=== PATIENT | male | born 1960 | race Caucasian/White ===

== ENCOUNTER 2023-05-06 13:11 | Emergency (ER) | payer OTHER, SELFPAY ==
--- OUTSIDE RECORDS SUMMARY | 2023-05-06 13:14 | XMS REPORT | Continuity of Care Document ---
:[address] [facility] t Address [address] [place] [address] [place] [address] Care Team Providers Name Role Phone CHRISTIAN BISHOP Attending Clinician Unavailable Josie Attending Clinician Unavailable Grady Salgado Attending Clinician Unavailable EVELYN Attending Clinician Unavailable DANE Attending Clinician Unavailable Josie Admitting Clinician Unavailable EVELYN Admitting Clinician Unavailable DANE Admitting Clinician Unavailable Payers Payer Name Policy Type Policy Number Effective Date Expiration Date [facility] [id number] REGION 4 Problems Condition Condition Condition Status Onset Resolution Last Treating Co mments Source Name Details Category Date Date Treatment Clinician Date Essential Essential Problem Active [facility] hypertensi Hypertensi 2-24 da on on 00:00: Medical 00 Group Foot pain Foot Pain Problem Active [facility] Allergies, Adverse Reactions, Alerts This patient has no known allergies or adverse reactions. Social History Smoking Status Start Date Stop Date Source Former Smoker [facility] Medications Ordered Filled Start Stop Current Ordering Indication Dosage Frequency Signature Comments Components Source Medication Medication Date Date Medication? Clinician (SIG) Name Name acetaminoph acetaminoph No acetaminop [facility] en 500 mg en 500 mg hen 500 mg da tablet tablet tablet Medical Group amlodipine amlodipine No amlodipine [facility] 10 mg 10 mg 10 mg da tablet Take tablet Take tablet Medical 1 tablet 1 tablet Take 1 Group every day every day tablet by oral by oral every day route. route. by oral route. Fish Oil Fish Oil No 1capsul Q1D Fish Oil [facility] 1,000 mg 1,000 mg e(s) 1,000 mg da (120 mg-180 (120 mg-180 (120 M edical mg) capsule mg) capsule mg-180 mg) Group Take 1 Take 1 capsule capsule capsule Take 1 every day every day capsule by oral by oral every day route. route. by oral route. Golytely Golytely No Golytely [facility] [phone] da gram-22.74 gram-22.74 gram-22.74 Medical gram-6.74 gram-6.74 gram-6.74 Group gram-5.86 gram-5.86 gram-5.86 gram oral gram oral gram oral solution solution solution MIX AND MIX AND MIX AND TAKE TAKE TAKE DIRECTED DIRECTED DIRECTED hydrochloro hydrochloro No hydrochlor [facility] thiazide thiazide othiazide da 12.5 mg 12.5 mg 12.5 mg Medica l capsule capsule capsule Group losartan losartan No losartan [place] 100 mg 100 mg 100 mg da tablet tablet tablet Medical Group meloxicam meloxicam No 1 Q1D meloxicam [facility] 15 mg 15 mg 15 mg da tablet Take tablet Take tablet Medical 1 tablet 1 tablet Take 1 Group every day every day tablet by oral by oral every day route. route. by oral route. methocarbam methocarbam No 2 BID methocarba [place] ol 500 mg ol 500 mg mol 500 mg da tablet Take tablet Take tablet Medical 2 tablets 2 tablets Take 2 Hoa up twice a day twice a day tablets by oral by oral twice a route. route. day by oral route. acetaminoph acetaminoph No acetaminop [place] en 500 mg en 500 mg hen 500 mg da tablet tablet tablet Medical Group amlodipine amlodipine No amlodipine [facility] 10 mg 10 mg 10 mg da tablet Take tablet Take tablet Medical 1 tablet 1 tablet Take 1 Group every day every day tablet by oral by oral every day route. route. by oral route. Fish Oil Fish Oil No 1capsul Q1D Fish Oil [facility] 1,000 mg 1,000 mg e(s) 1,000 mg da (120 mg-180 (120 mg-180 (120 M edical mg) capsule mg) capsule mg-180 mg) Group Take 1 Take 1 capsule capsule capsule Take 1 every day every day capsule by oral by oral every day route. route. by oral route. hydrochloro hydrochloro No hydrochlor [facility] thiazide thiazide othiazide da 12.5 mg 12.5 mg 12.5 mg Medica l capsule capsule capsule Group losartan losartan No losartan [facility] [place] 100 mg 100 mg 100 mg da tablet tablet tablet Medical Group meloxicam meloxicam No 1 Q1D meloxicam [facility] 15 mg 15 mg 15 mg da tablet Take tablet Take tablet Medical 1 tablet 1 tablet Take 1 Group every day every day tablet by oral by oral every day route. route. by oral route. methocarbam methocarbam No 2 BID methocarba [place] ol 500 mg ol 500 mg mol 500 mg da tablet Take tablet Take tablet Medical 2 tablets 2 tablets Take 2 Hoa up twice a day twice a day tablets by oral by oral twice a route. route. day by oral route. acetaminoph acetaminoph No acetaminop [place] en 500 mg en 500 mg hen 500 mg da tablet tablet tablet Medical Group amlodipine amlodipine No amlodipine [place] 10 mg 10 mg 10 mg da tablet Take tablet Take tablet Medical 1 tablet 1 tablet Take 1 Group every day every day tablet by oral by oral every day route. route. by oral route. Fish Oil Fish Oil No 1capsul Q1D Fish Oil [facility] 1,000 mg 1,000 mg e(s) 1,000 mg da (120 mg-180 (120 mg-180 (120 M edical mg) capsule mg) capsule mg-180 mg) Group Take 1 Take 1 capsule capsule capsule Take 1 every day every day capsule by oral by oral every day route. route. by oral route. hydrochloro hydrochloro No hydrochlor [facility] thiazide thiazide othiazide da 12.5 mg 12.5 mg 12.5 mg Medica l capsule capsule capsule Group losartan losartan No losartan [facility] [place] 100 mg 100 mg 100 mg da tablet tablet tablet Medical Group meloxicam meloxicam No 1 Q1D meloxicam [facility] 15 mg 15 mg 15 mg da tablet Take tablet Take tablet Medical 1 tablet 1 tablet Take 1 Group every day every day tablet by oral by oral every day route. route. by oral route. methocarbam methocarbam No 2 BID methocarba [place] ol 500 mg ol 500 mg mol 500 mg da tablet Take tablet Take tablet Medical 2 tablets 2 tablets Take 2 Hoa up twice a day twice a day tablets by oral by oral twice a route. route. day by oral route. Vital Signs Vital Name Observation Time Observation Value Comments Source BP Diastolic 2022-11-14 00:00:00 88 mm[Hg] [facility] Height 2022-11-14 00:00:00 76 [in_i] [facility] BMI (Body Mass 2022-11-14 00:00:00 20.7 kg/m2 [facility]) Group BP Systolic 2022-11-14 00:00:00 151 mm[Hg] [facility] Body Weight 2022-11-14 00:00:00 169.7 [lb_av] [facility] BP Diastolic 2022-10-06 00:00:00 89 mm[Hg] [facility] Height 2022-10-06 00:00:00 76 [in_i] [facility] BMI (Body Mass 2022-10-06 00:00:00 19.7 kg/m2 [facility] Index) Group BP Systolic 2022-10-06 00:00:00 148 mm[Hg] [facility] Body Weight 2022-10-06 00:00:00 162 [lb_av] [facility] BP Diastolic 2022-09-12 00:00:00 106 mm[Hg] [facility] Height 2022-09-12 00:00:00 76 [in_i] [facility] BMI (Body Mass 2022-09-12 00:00:00 19.7 kg/m2 [facility] Medical Index) Group BP Systolic 2022-09-12 00:00:00 144 mm[Hg] [facility] Body Weight 2022-09-12 00:00:00 162 [lb_av] [facility] Procedures This patient has no known procedures. Plan of Care Planned Activity Planned Date Details Comments Source Instructions [facility] Encounters Start End Encounter Admission Attending Care Care Encounter Source Date/Time Date/Time Type Type Clinicians Facility Department ID 2022-10-21 Inpatient EL IHDCHRISTIAN Villar [facility] [id number] [place] 08:30:00 -[id number] [facility] 2022-10-08 Inpatient EL IhdeChristian [facility] [id number] [place] 07:30:00 -[id number] [facility] 2022-10-03 Inpatient EL IhdeChristian [facility] [id number] [place] 08:45:00 -[id number] [facility] 2022-11-14 2022-11-14 Outpatient Young_J [facility] MMG [id number] [place] 00:00:00 00:00:00 0428 [facility] 2022-11-14 2022-11-14 Outpatient Young_J MM[facility] MMG [id number] [place] 00:00:00 00:00:00 0503 [facility] 2022-11-14 2022-11-14 Grady KRAFT [place] - [id number] M [facility] 00:00:00 00:00:00 Damian, DO: [facility] [address] [place] [address] , Ph. [phone] 2022-11-03 2022-11-03 Outpatient Young_J MM[facility] MMG [id number] [place] 00:00:00 00:00:00 0417 Medical Group 2022-10-22 2022-10-22 Outpatient RUPALI Salgado [facility] [id number] [place] 08:20:00 08:20:00 Grady [id number] [facility] 2022-10-13 2022-10-13 Outpatient Young_J MMG MMG [id number] [place] 00:00:00 00:00:00 0410 Medical Group 2022-10-06 2022-10-06 Grady KRAFT [place] - [id number] [facility] 00:00:00 00:00:00 Damian, DO: d [address], [place] [address] , Ph. [phone] 2022-10-01 2022-10-01 Outpatient Young_J MMG MMG [id number] [place] 00:00:00 00:00:00 0320 [facility] 2022-10-01 2022-10-01 Outpatient Young_J MMG MMG [id number] [place] 00:00:00 00:00:00 0321 [facility] 2022-10-01 2022-10-01 Outpatient Young_J MMG MMG [id number] [place] 00:00:00 00:00:00 0325 [facility] 2022-10-01 2022-10-01 Outpatient Young_J MMG MMG [id number] [place] 00:00:00 00:00:00 0327 [facility] 2022-09-25 2022-09-25 Outpatient Young_J MMG MMG [id number] [place] 00:00:00 00:00:00 0309 [facility] 2022-09-12 2022-09-12 Outpatient IHDE_G MMG MMG [id number] [place] 00:00:00 00:00:00 0301 [facility] 2022-09-12 2022-09-12 Outpatient IHDE_G MMG MMG [id number] [place] 00:00:00 00:00:00 0224 [facility] 2022-09-12 2022-09-12 Christian MMG [place] - [id number] M [facility] 00:00:00 00:00:00 Chino Russell MD: Medical [facility] [address], General [address], [place] [address] , Ph. [phone] 2022-09-10 2022-09-10 Outpatient IHDE_G MMG MMG [id number] [place] 00:00:00 00:00:00 0222 [facility] 2022-07-29 2022-07-29 Outpatient FERGUSON_JO MEHOP MEHOP [id number] [place] 00:00:00 00:00:00 HN 0110 [facility] 2022-07-29 2022-07-29 Outpatient FERGUSON_JO MEHOP MEHOP [id number] [place] 00:00:00 00:00:00 HN 0710 [facility] 2022-03-31 2022-03-31 Outpatient FERGUSON_JO MEHOP MEHOP [id number] [place] 00:00:00 00:00:00 HN 0912 [facility] 2022-03-13 2022-03-13 Outpatient FERGUSON_JO MEHOP MEHOP [id number] [place] 00:00:00 00:00:00 HN 0825 [facility] 2022-03-12 2022-03-12 Outpatient FERGUSON_JO MEHOP MEHOP [id number] [place] 00:00:00 00:00:00 HN 0824 [facility] 2022-02-18 2022-02-18 Outpatient FERGUSON_JO MEHOP MEHOP [id number] [place] 00:00:00 00:00:00 HN 0802 [facility] 2022-01-22 2022-01-22 Outpatient FERGUSON_JO MEHOP MEHOP [id number] [place] 12:02:00 12:02:00 HN 0706 [facility] 2021-07-09 2021-07-09 Outpatient FERGUSON_JO MEHOP MEHOP [id number] [place] 02:48:00 02:48:00 HN 1221 [facility] 2021-06-04 2021-06-04 Outpatient FERGUSON_JO MEHOP MEHOP [id number] [place] 09:59:00 09:59:00 HN 1116 [facility] 2021-05-28 2021-05-28 Outpatient FERGUSON_JO MEHOP MEHOP [id number] [place] 09:05:00 09:05:00 HN 1109 [facility] 2021-04-18 2021-04-18 Outpatient FERGUSON_JO MEHOP MEHOP [id number] [place] 08:59:00 08:59:00 HN 0930 [facility] 2021-03-20 2021-03-20 Outpatient FERGUSON_JO MEHOP MEHOP [id number] [place] 07:26:00 07:26:00 HN 0901 [facility] 2021-03-13 2021-03-13 Outpatient FERGUSON_JO MEHOP MEHOP [id number] [place] 02:40:00 02:40:00 HN 0825 [facility] 2021-02-13 2021-02-13 Outpatient FERGUSON_JO MEHOP MEHOP [id number] [place] 08:57:00 08:57:00 HN 0728 [facility] 2020-09-11 2020-09-11 Outpatient FERGUSON_JO MEHOP MEHOP [id number] [place] 09:01:00 09:01:00 HN 0223 [facility] 2020-07-31 2020-07-31 Outpatient FERGUSON_JO MEHOP MEHOP [id number] [place] 02:32:00 02:32:00 HN 0112 [facility] 2020-07-30 2020-07-30 Outpatient FERGUSON_JO MEHOP MEHOP [id number] [place] 03:35:00 03:35:00 HN 0111 [facility] 2020 2020 Outpatient FERGUSON_JO MEHOP MEHOP 838 [place] 11:13:00 11:13:00 HN 1218 [facility] 2020-06-13 2020-06-13 Outpatient FERGUSON_JO MEHOP MEHOP [id number] [place] 05:46:00 05:46:00 HN 1125 [facility] 2020-06-04 2020-06-04 Outpatient FERGUSON_JO MEHOP MEHOP 838 [place] 02:55:00 02:55:00 HN 1116 [facility] 2020-02-28 2020-02-28 Outpatient FERGUSON_JO MEHOP MEHOP [id number] [place] 11:47:00 11:47:00 HN 0811 [facility] 2020-02-21 2020-02-21 Outpatient FERGUSON_JO MEHOP MEHOP [id number] [place] 09:04:00 09:04:00 HN 0804 [facility] 2019-09-06 2019-09-06 Outpatient FERGUSON_JO MEHOP MEHOP 838 [place] 02:57:00 02:57:00 HN 0218 [facility] 2019-08-25 2019-08-25 Outpatient YVONNE BROWN 838 [place] 09:28:00 09:28:00 BILL [facility]206 [facility] This patient has no known results.
--- NOTE | 2023-05-06 14:04 | RAD REPORT ---
EXAM DESCRIPTION: [place] Single View05/06/2023 1:36 pm CLINICAL HISTORY: CHEST PAIN COMPARISON: No comparisons TECHNIQUE: PA view of the chest. FINDINGS: Small left basilar airspace opacity. No pneumothorax or effusion. The cardiomediastinal c ontours are unremarkable. IMPRESSION: Left basilar airspace opacity may relate to atelectasis/ scarring or early pneumonia
[2023-05-06 14:11] LABS: Absolute Lymphocytes (CBC) 0.9 K/uL (0.7-4.9); Hematocrit 42.6 % (39.6-49.0); MCV 86.5 fL (80-100); MPV 7.4 fL (7.6-11.3); Platelets 202 thou/uL (152-406); RBC Red Blood Cell Count 4.92 M/uL (4.33-5.43)
[2023-05-06 14:14] LABS: Protime INR 0.98
[2023-05-06 14:34] LABS: Albumin 4.4 g/dL (3.4-5.0); Bilirubin Direct 0.2 mg/dL (0-0.2); Bilirubin Indirect, Calculated 0.6 mg/dL (0.2-0.8); Bilirubin Total 0.8 mg/dL (0.2-1.0); Magnesium 2.1 mg/dL (1.6-2.4); Potassium 3.6 mEq/L (3.5-5.1); Protein, Total 7.8 g/dL (6.4-8.2); Troponin High Sensitivity 7.1 pg/mL (<58.9)
--- NOTE | 2023-05-06 14:57 | EDPHYS ---
Physician Documentation [facility] Name: Dakota Mcmahan Age: 62 yrs Sex: Male : 1960 Arrival Date: 05/06/2023 Time: 13:11 Bed 11 Private MD: ED Physician Kristal Castillo HPI: 05/06 14:53 This 62 yrs old Male presents to ER via Ambulatory with complaints of Chest Pain, Blood sp3 Pressure Problem. 14:53 62-year-old male with history of hypertension that seen at the [facility], multiple sp3 episodes of pleuritic chest pain diagnosed with pleurisy in the past now presents to the ED with left-sided sharp pleuritic type chest pain since Thursday 5 days ago. Patient states that its not been going away so he decided to come in and get evaluated. He denies any substernal chest pain, dull pain, back pain, syncope, near syncope, headache, neck pain, jaw pain, left arm pain, epigastric pain, abdominal pain, vomiting, diarrhea, any other signs or symptoms on ROS at this time. No prior cardiac history noted.. Historical: - Allergies: 13:20 No Known Allergies; mb9 - Home Meds: 13:20 amlodipine 10 mg tablet [Active]; hydrochlorothiazide 12.5 mg Oral tablet [Active]; mb9 losartan 100 mg oral tablet [Active]; meloxicam 15 mg oral tablet [Active]; methocarbamol 500 mg Oral tablet [Active]; - PMHx: 13:20 Hypertensive disorder; mb9 - PSHx: 13:20 None; mb9 - Immunization history:: Adult Immunizations up to date. - Social history:: Smoking status: Patient denies any tobacco usage or history of. ROS: 14:54 Constitutional: Negative for fever, chills, and weight loss, Eyes: Negative for injury, sp3 pain, redness, and discharge, ENT: Negative for injury, pain, and discharge, Neck: Negative for injury, pain, and swelling, Respiratory: Negative for shortness of breath, cough, wheezing, and pleuritic chest pain, Abdomen/GI: Negative for abdominal pain, nausea, vomiting, diarrhea, and constipation, Back: Negative for injury and pain, MS/Extremity: Negative for injury and deformity, Skin: Negative for injury, rash, and discoloration, Neuro: Negative for headache, weakness, numbness, tingling, and seizure, Psych: Negative for depression, anxiety, suicide ideation, homicidal ideation, and hallucinations, Allergy/Immunology: Negative for hives, rash, and allergies, Endocrine: Negative for neck swelling, polydipsia, polyuria, polyphagia, and marked weight changes, Hematologic/Lymphatic: Negative for swollen nodes, abnormal bleeding, and unusual bruising, 14:54 All other systems are negative, Exam: 14:54 Constitutional: This is a well developed, well nourished patient who is awake, alert, sp3 and in no acute distress. Head/Face: Normocephalic, atraumatic. Eyes: Pupils equal round and reactive to light, extra-ocular motions intact. Lids and lashes normal. Conjunctiva and sclera are non-icteric and not injected. Cornea within normal limits. Periorbital areas with no swelling, redness, or edema. Neck: Trachea midline, no thyromegaly or masses palpated, and no cervical lymphadenopathy. Supple, full range of motion without nuchal rigidity, or vertebral point tenderness. No Meningismus. Chest/axilla: Normal chest wall appearance and motion. Nontender with no deformity. No lesions are appreciated. Cardiovascular: Regular rate and rhythm with a normal S1 and S2. No gallops, murmurs, or rubs. Normal PMI, no JVD. No pulse deficits. Respiratory: Lungs have equal breath sounds bilaterally, clear to auscultation and percussion. No rales, rhonchi or wheezes noted. No increased work of breathing, no retractions or nasal flaring. Abdomen/GI: Soft, non-tender, with normal bowel sounds. No distension or tympany. No guarding or rebound. No evidence of tenderness throughout. Back: No spinal tenderness. No costovertebral tenderness. Full range of motion. Skin: Warm, dry with normal turgor. Normal color with no rashes, no lesions, and no evidence of cellulitis. MS/ Extremity: Pulses equal, no cyanosis. Neurovascular intact. Full, normal range of motion. Neuro: Awake and alert, GCS 15, oriented to person, place, time, and situation. Cranial nerves II-XII grossly intact. Motor strength 5/5 in all extremities. Sensory grossly intact. Cerebellar exam normal. Normal gait. Psych: Awake, alert, with orientation to person, place and time. Behavior, mood, and affect are within normal limits. 14:54 ECG was reviewed by the Attending Physician. EKG demonstrates normal sinus rhythm at 91 bpm with normal intervals, normal QRS, normal axis, nonspecific diffuse ST/T changes without evidence of acute ischemia. Vital Signs: 13:18 BP 150 / 81; Pulse 87; Resp 18; Temp 98.4; Pulse Ox 100% on R/A; Weight 79.38 kg; mb9 Height 6 ft. 4 in. ; 13:18 Body Mass Index 21.30 (79.38 kg, 193.04 cm) mb9 MDM: 13:25 Patient medically screened. sp3 14:55 Data reviewed: vital signs, nurses notes, lab test result(s), EKG, radiologic studies. sp3 ED course: 62-year-old male with likely pleuritic type chest pain. I am not highly suspicious for acute coronary syndrome, dissection, PE or any other critical illness. Symptoms have been going on for 5 days and troponin high-sensitivity is negative. Remainder of work-up is also negative including chest x-ray and laboratory values. We will administer ketorolac IV and discharge patient on diclofenac [facility]. Patient is in no acute distress, laughing and communicating with staff without any difficulty. We will safely discharge him home at this time.. 05/06 13:25 Order name: Basic Metabolic Panel; Complete Time: 14:36 3 05/06 13:25 Order name: CBC with Diff; Complete Time: 14:36 3 05/06 13:25 Order name: LFT's; Complete Time: 14:36 3 05/06 13:25 Order name: Magnesium; Complete Time: 14:36 3 05/06 13:25 Order name: NT PRO-BNP; Complete Time: 14:36 3 05/06 13:25 Order name: PT-INR; Complete Time: 14:36 3 05/06 13:25 Order name: Troponin HS; Complete Time: 14:36 3 05/06 13:25 Order name: XRAY Chest (1 view); Complete Time: 14:36 3 05/06 13:25 Order name: EKG; Complete Time: 13:26 3 05/06 13:25 Order name: Cardiac monitoring; Complete Time: 14:32 sp3 05/06 13:25 Order name: EKG - Nurse/Tech; Complete Time: 13:26 sp3 05/06 13:25 Order name: IV Saline Lock; Complete Time: 14:06 sp3 05/06 13:25 Order name: Labs collected and sent; Complete Time: 14:06 sp3 05/06 13:25 Order name: O2 Per Protocol; Complete Time: 14:32 sp3 05/06 13:25 Order name: O2 Sat Monitoring; Complete Time: 14:32 sp3 Administered Medications: No medications were administered Disposition Summary: 05/06/23 14:56 Discharge Ordered Notes: Location: Home sp3 Condition: Stable sp3 Diagnosis - Pleurisy sp3 Followup: sp3 - With: Private Physician - When: Upon discharge from the Emergency Department - Reason: Continuance of care Discharge Instructions: - Discharge Summary Sheet sp3 - Pleurisy sp3 Forms: - Medication Reconciliation Form sp3 - Thank You Letter sp3 - Antibiotic Education sp3 - Prescription Opioid Use sp3 - Patient Portal Instructions sp3 - Leadership Thank You Letter sp3 Prescriptions: - Diclofenac Sodium 75 mg Oral Tablet Sustained Release - take 1 tablet ORAL route 2 times per day; 30 tablet; Refills: 0, Product sp3 Selection Permitted Signatures: Dispatcher [employer] EDKristal Curiel MD MD sp3 Yesenia Rodriguez RN RN mb9
--- NOTE | 2023-05-06 14:57 | ER ---
Nurse's Notes [facility] Name: Dakota Mcmahan Age: 62 yrs Sex: Male : 1960 Arrival Date: 05/06/2023 Time: 13:11 Bed 11 Private MD: Diagnosis: Pleurisy Presentation: 05/06 13:18 Chief complaint: Patient states: "Thursday, I started having pleurisy pain on my left mb9 side. I've been having high BP of 161/91. I'm not sure if my BP medication is working or not.". Coronavirus screen: Vaccine status: Patient reports receiving the 2nd dose of the covid vaccine. Ebola Screen: No symptoms or risks identified at this time. Initial Sepsis Screen: Does the patient meet any 2 criteria? No. Patient's initial sepsis screen is negative. Does the patient have a suspected source of infection? No. Patient's initial sepsis screen is negative. Risk Assessment: Do you want to hurt yourself or someone else? Patient reports no desire to harm self or others. Onset of symptoms was 2022. 13:18 Method Of Arrival: Ambulatory mb9 13:18 Acuity: ADITI 3 mb9 Triage Assessment: 13:22 General: Appears in no apparent distress. Behavior is cooperative, anxious. Pain: mb9 Complains of pain in chest Quality of pain is described as pressure, Pain began 2-3 days ago. Is intermittent, Alleviated by inspiration. Neuro: Munoz Agitation-Sedation Scale (RASS): 0 - Alert and Calm Level of Consciousness is awake, alert, obeys commands, Oriented to person, place, time, situation, Appropriate for age. Cardiovascular: Reports chest pain. Cardiovascular: Patient's skin is warm and dry. Respiratory: Reports cough that is. Respiratory: Airway is patent Respiratory effort is even, unlabored, Respiratory pattern is regular, symmetrical. GI: Patient currently denies nausea, pain. : No signs and/or symptoms were reported regarding the genitourinary system. Derm: Skin is pink, warm \\T\\ dry. Musculoskeletal: Range of motion: intact in all extremities. Historical: - Allergies: 13:20 No Known Allergies; mb9 - Home Meds: 13:20 amlodipine 10 mg tablet [Active]; hydrochlorothiazide 12.5 mg Oral tablet [Active]; mb9 losartan 100 mg oral tablet [Active]; meloxicam 15 mg oral tablet [Active]; methocarbamol 500 mg Oral tablet [Active]; - PMHx: 13:20 Hypertensive disorder; mb9 - PSHx: 13:20 None; mb9 - Immunization history:: Adult Immunizations up to date. - Social history:: Smoking status: Patient denies any tobacco usage or history of. Screenin:32 [facility] ED Fall Risk Assessment (Adult) History of falling in the last 3 months, ap3 including since admission No falls in past 3 months (0 pts). Abuse screen: Denies threats or abuse. Nutritional screening: No deficits noted. Tuberculosis screening: No symptoms or risk factors identified. Assessment: 13:23 Reassessment: EKG done in triage. mb9 14:32 General: Appears in no apparent distress. Behavior is calm, cooperative, appropriate ap3 for age. Pain: Denies pain. Pain does not radiate. Neuro: Level of Consciousness is awake, alert, obeys commands, Oriented to person, place, time, situation. Cardiovascular: Patient's skin is warm and dry. Respiratory: Airway is patent Respiratory effort is even, unlabored, Respiratory pattern is regular, symmetrical. Vital Signs: 13:18 BP 150 / 81; Pulse 87; Resp 18; Temp 98.4; Pulse Ox 100% on R/A; Weight 79.38 kg; mb9 Height 6 ft. 4 in. ; 13:18 Body Mass Index 21.30 (79.38 kg, 193.04 cm) mb9 ED Course: 13:16 Patient arrived in ED. mg5 13:20 Triage completed. mb9 13:22 Arm band placed on. mb9 13:24 Kristal Castillo MD is Attending Physician. sp3 13:29 EKG done, by ED staff, reviewed by Kristal Castillo MD. ap3 13:37 XRAY Chest (1 view) In Process Unspecified. EDMS 14:06 Inserted saline lock: 20 gauge in left antecubital area, using aseptic technique. iw 14:26 Ana Shukla, RN is Primary Nurse. ap3 14:33 rate and cost analyst on. Pulse ox on. NIBP on. ap3 14:33 Patient has correct armband on for positive identification. Bed in low position. Call ap3 light in reach. Side rails up X 1. 14:33 Patient maintains SpO2 saturation greater than 95% on room air. ap3 15:09 No provider procedures requiring assistance completed. IV discontinued, intact, ap3 bleeding controlled, No redness/swelling at site. Pressure dressing applied. 15:10 Provided Education on: discharge instructions. ap3 Administered Medications: No medications were administered Medication: 14:33 VIS not applicable for this client. ap3 Outcome: 14:56 Discharge ordered by . sp3 15:10 Discharged to home ambulatory, ap3 15:10 Condition: good 15:10 Discharge instructions given to patient, Instructed on discharge instructions, follow up and referral plans. medication usage, Demonstrated understanding of instructions, follow-up care, medications, Prescriptions given X 1, 15:10 Patient left the ED. ap3 Signatures: Dispatcher [employer] EDMS Sophie Junior RN RN iw Prokisch, Amanda, RN RN ap3 Kristal Castillo MD MD sp3 Yesenia Rodriguez RN RN mb9 Katina Manrique mg5 Corrections: (The following items were deleted from the chart) 13:22 13:18 Pulse 87bpm; Resp 18bpm; Pulse Ox 100% RA; Temp 98.4F; 79.38 kg; Height 6 ft. 4 mb9 in.; BMI: 21.3; mb9
[2023-05-06 17:03] VITALS: BP 150/81; TEMP 98.4; O2SAT 100
--- NOTE | 2023-05-07 13:39 | EKG ---
Test Date: 2023-05-06 Test Time: 13:23:17 Training Development Manager: ALP MEASUREMENT RESULTS: Intervals: Rate: 91 CT: 156 QRSD: 76 QT: 356 QTc: 437 Romulus: P: 86 CT: 156 QRS: 18 T: 76 INTERPRETIVE STATEMENTS: Normal sinus rhythm Possible Left atrial enlargement Borderline ECG Compared to ECG 10/11/2002 09:36:00 Left ventricular hypertrophy no longer present Electronically Signed On 05-07-23 13:36:58 CDT by Abhijit Sorto
== END 2023-05-06 15:10 | disposition home or self-care (01) ==
LOC: ER 13:11
DX: R09.1 Pleurisy (principal); I10 Essential (primary) hypertension
CPT/HCPCS: 36415; 71045; 80048; 80076; 83735; 83880; 84484; 85025; 85610; 93005

== ENCOUNTER 2024-12-07 09:50 | Emergency (ER) | payer OTHER ==
--- OUTSIDE RECORDS SUMMARY | 2024-12-07 09:54 | XMS REPORT | Continuity of Care Document ---
Author Name Unknown Address [address] [facility] [address] [place] [address] [facility] [place] Address [address] [facility] [address] [place] [address] Care Team Providers Care Safety Aide Name Role Phone OBI-MD VEENA TELLO Primary Care Physician CONCEPCION SOLARES Attending Clinician Unavailable KATI CASTANEDA Attending Clinician Unavailab CHRISTIAN Oconnell Attending Clinician Unavaila ble GÓMEZ SHERMAN, GÓMEZ Attending Clinician Unava ilable BLAYNE, OLADIPO Attending Clinician Unavailable DANE Attending Clinician Unavailable Josie Attending Clinician Unavailable Grady Salgado Attending Clinician Unavailable IHDE_G Attending Clinician Unavailable GÓMEZ SHERMAN, GÓMEZ Admitting Clinician Unava ilable BLAYNE, OLADIPO Admitting Clinician Unavailable DANE Admitting Clinician Unavailable Josie Admitting Clinician Unavailable IHDE_G Admitting Clinician Unavailable Payers Payer Name Policy Type Policy Number Effective Date Expirati on Date Source FORMERLY [facility] [id number] FORMERLY [facility] 4 [id number] Problems Condition Name Condition Details Condition Category Status Onset Date Resolution Date Last Treatment Date Treating Clinician Comments Source Essential hypertensi on Essential Hypertensi on Problem Active 09-12 00:00: 00 [employer] Avulsion fracture of navicular bone of foot Problem [facility] Hypertensi on Problem [facility] Laceration of right extensor hallucis longus tendon Problem [facility] Open fracture Problem [facility] Injury of right foot Problem [facility] Foot pain Foot Pain Problem Active [facility] Social History Social Habit Start Date Stop Date Quantity Comments Source History of tobacco use [facility] Smoking Status Start Date Stop Date Source Ex-smoker (finding) 2024-03-30 22:21:00 2024-03-30 22: 21:00 [facility] Medications Ordered Medication Name Filled Medication Name Start Date Stop Date Current Medication? Ordering Clinician Indication Dosage Frequency Signature (SIG) Comments Components Source Ampicillin Sod/Sulbact am Sod (Unasyn 1.5 Gm) 1.5 Gm INJ Ampicillin Sod/Sulbact am Sod (Unasyn 1.5 Gm) 1.5 Gm INJ 04-05 15:51: [address] [facility] Amlodipine Besylate (Norvasc *) 10 Mg TAB Amlodipine Besylate (Norvasc *) 10 Mg TAB 03-30 22:19: [address] [facility] Hydrochloro thiazide Hydrochloro thiazide 03-30 22:19: [address] [facility] Losartan Potassium (Cozaar *) 100 Mg TAB Losartan Potassium (Cozaar *) 100 Mg TAB 03-30 22:19: [address] [facility] Acetaminoph en (Tylenol *) 500 Mg TAB Acetaminoph en (Tylenol *) 500 Mg TAB 4-04 10:47: [address] [facility] Ascorbic Acid (Vitamin C 500 Mg *) 500 Mg TAB Ascorbic Acid (Vitamin C 500 Mg *) 500 Mg TAB 10-21 10:47: [address] [facility] Cholecalcif tamar (Vitamin D High Potency 1,000 Unt *) 1,000 Unit CAP Cholecalcif tamar (Vitamin D High Potency 1,000 Unt *) 1,000 Unit CAP 10-21 10:47: [address] [facility] Garlic (Garlic 500 Mg) 500 Mg TAB Garlic (Garlic 500 Mg) 500 Mg TAB 10-21 10:47: [address] [facility] Methocarbam ol (Methocarba mol 500 Mg) 500 Mg TAB Methocarbam ol (Methocarba mol 500 Mg) 500 Mg TAB 10-21 10:47: [address] [facility] Multiple Vitamin * (Multivitam ins *) TAB Multiple Vitamin * (Multivitam ins *) TAB 10-21 10:47: [address] [facility] [place]-3 Fatty Acids (Fish Oil 1,000 Mg) 1,[address] [place]-3 Fatty Acids (Fish Oil 1,000 Mg) 1,[address] 10-21 10:47: [address] [facility] Fish Oil 1,000 mg (120 mg-180 mg) capsule Take 1 capsule every day by oral route. Fish Oil 1,000 mg (120 mg-180 mg) capsule Take 1 capsule every day by oral route. No 1capsul e(s) Q1D Fish Oil 1,000 mg (120 mg-180 mg) capsule Take 1 capsule every day by oral route. [employer] meloxicam 15 mg tablet Take 1 tablet every day by oral route. meloxicam 15 mg tablet Take 1 tablet every day by oral route. No 1 Q1D meloxicam 15 mg tablet Take 1 tablet every day by oral route. [employer] acetaminoph en 500 mg tablet acetaminoph en 500 mg tablet No acetaminop hen 500 mg tablet [employer] amlodipine 10 mg tablet Take 1 tablet every day by oral route. amlodipine 10 mg tablet Take 1 tablet every day by oral route. No amlodipine 10 mg tablet Take 1 tablet every day by oral route. [employer] Fish Oil 1,000 mg (120 mg-180 mg) capsule Take 1 capsule every day by oral route. Fish Oil 1,000 mg (120 mg-180 mg) capsule Take 1 capsule every day by oral route. No 1capsul e(s) Q1D Fish Oil 1,000 mg (120 mg-180 mg) capsule Take 1 capsule every day by oral route. [employer] Golytely 236 gram-22.74 gram-6.74 gram-5.86 gram oral solution MIX AND TAKE DIRECTED Golytely 236 gram-22.74 gram-6.74 gram-5.86 gram oral solution MIX AND TAKE DIRECTED No Golytely 236 gram-22.74 gram-6.74 gram-5.86 gram oral solution MIX AND TAKE DIRECTED [employer] hydrochloro thiazide 12.5 mg capsule hydrochloro thiazide 12.5 mg capsule No hydrochlor othiazide 12.5 mg capsule [employer] losartan 100 mg tablet losartan 100 mg tablet No losartan 100 mg tablet [employer] meloxicam 15 mg tablet Take 1 tablet every day by oral route. meloxicam 15 mg tablet Take 1 tablet every day by oral route. No 1 Q1D meloxicam 15 mg tablet Take 1 tablet every day by oral route. [employer] methocarbam ol 500 mg tablet Take 2 tablets twice a day by oral route. methocarbam ol 500 mg tablet Take 2 tablets twice a day by oral route. No 2 BID methocarba mol 500 mg tablet Take 2 tablets twice a day by oral route. [employer] acetaminoph en 500 mg tablet acetaminoph en 500 mg tablet No acetaminop hen 500 mg tablet [employer] amlodipine 10 mg tablet Take 1 tablet every day by oral route. amlodipine 10 mg tablet Take 1 tablet every day by oral route. No amlodipine 10 mg tablet Take 1 tablet every day by oral route. [employer] Fish Oil 1,000 mg (120 mg-180 mg) capsule Take 1 capsule every day by oral route. Fish Oil 1,000 mg (120 mg-180 mg) capsule Take 1 capsule every day by oral route. No 1capsul e(s) Q1D Fish Oil 1,000 mg (120 mg-180 mg) capsule Take 1 capsule every day by oral route. [employer] hydrochloro thiazide 12.5 mg capsule hydrochloro thiazide 12.5 mg capsule No hydrochlor othiazide 12.5 mg capsule [employer] losartan 100 mg tablet losartan 100 mg tablet No losartan 100 mg tablet [employer] meloxicam 15 mg tablet Take 1 tablet every day by oral route. meloxicam 15 mg tablet Take 1 tablet every day by oral route. No 1 Q1D meloxicam 15 mg tablet Take 1 tablet every day by oral route. [facility] methocarbam ol 500 mg tablet Take 2 tablets twice a day by oral route. methocarbam ol 500 mg tablet Take 2 tablets twice a day by oral route. No 2 BID methocarba mol 500 mg tablet Take 2 tablets twice a day by oral route. [employer] Vital Signs Vital Name Observation Time Observation Value Comments S ource Weight 2024-04-05 05:27:[address] [facility] BMI (Body Mass Index) 2024-04-05 05:27:00 24.6 kg/m2 [facility] Height 2024-03-30 16:15:00 170.720545 cm [facility] BP Diastolic 2022-11-14 00:00:00 88 mm[Hg] [facility] Height 2022-11-14 00:00:00 76 [in_i] [facility] BMI (Body Mass Index) 2022-11-14 00:00:00 20.7 kg/m2 [facility] BP Systolic 2022-11-14 00:00:00 151 mm[Hg] [facility] Body Weight 2022-11-14 00:00:00 169.7 [lb_av[facility] Diastolic 2022-10-06 00:00:00 89 mm[Hg] [facility] Height 2022-10-06 00:00:00 76 [in_i] [facility] BMI (Body Mass Index) 2022-10-06 00:00:00 19.7 kg/m2 [facility] BP Systolic 2022-10-06 00:00:00 148 mm[Hg] [facility] Body Weight 2022-10-06 00:00:00 162 [lb_av] [facility] BP Diastolic 2022-09-12 00:00:00 106 mm[Hg] [facility] Height 2022-09-12 00:00:00 76 [in_i] [facility] BMI (Body Mass Index) 2022-09-12 00:00:00 19.7 kg/m2 [facility] BP Systolic 2022-09-12 00:00:00 144 mm[Hg] [facility] Body Weight 2022-09-12 00:00:00 162 [lb_av] [facility] Plan of Care Planned Activity Planned Date Details Comments Source Instructions [facility] Encounters Start Date/Time End Date/Time Encounter Type Admission Type Attending Clinicians Care Facility Care Department Encounter ID Source 2024-08-16 11:00:00 Inpatient [facility]CEPCION [facility] [id number] [facility] 2024-08-10 09:00:00 Inpatient KATI [facility] [id number] [facility] 2022-10-21 08:30:00 Inpatient CHRISTIAN [facility] [id number] [facility] 2022-10-08 07:30:00 Inpatient Christian [facility] [id number] [facility] 2022-10-03 08:45:00 Inpatient Christian [facility] [id number] [facility] 2024-09-28 09:00:00 2024-09-28 09:00:00 Outpatient [facility]ATI [facility] [id number] [facility] 2024-09-14 09:00:00 2024-09-14 09:00:00 Outpatient [facility]I [facility] [id number] [facility] 2024-09-01 09:00:00 2024-09-01 09:00:00 Outpatient [facility]I [facility] [id number] [facility] 2024-08-26 09:00:00 2024-08-26 09:00:00 Outpatient RUPALI CASTANEDA [facility] [id number] [facility] 2024-08-23 09:00:00 2024-08-23 09:00:00 [id number] [facility] 2024-08-17 09:15:00 2024-08-17 09:15:00 Outpatient RUPALI CASTANEDA [facility] [id number] [facility] 2024-08-15 09:12:00 2024-08-15 09:12:00 Outpatient RUPALI CASTANEDA [facility] [id number] [facility] 2024-08-04 09:14:00 2024-08-04 09:14:00 Outpatient RUPALI CASTANEDA [facility] [id number] [facility] 2024-07-27 09:30:00 2024-07-27 09:30:00 Outpatient RUPALI HERRKATI [facility] [id number] [facility] 2024-07-18 10:12:00 2024-07-18 10:12:00 Outpatient RUPALI HERRKATI [facility] [id number] [facility] 2024-07-11 10:00:00 2024-07-11 10:00:00 Outpatient RUPALI HERRKATI [facility] [id number] [facility] 2024 09:00:00 2024 09:00:00 Outpatient K[facility]I [facility] [id number] [facility] 2024-06-29 09:00:00 2024-06-29 09:00:00 Outpatient [facility] [id number] [facility] 2024-06-22 08:55:00 2024-06-22 08:55:00 Outpatient [facility] [id number] [facility] 2024-06-08 10:00:00 2024-06-08 10:00:00 Outpatient [facility] [id number] [facility] 2024-06-01 10:00:00 2024-06-01 10:00:00 Outpatient [facility] [id number] [facility] 2024-05-25 11:00:00 2024-05-25 11:00:00 Outpatient [facility] [id number] [facility] 2024-05-11 10:00:00 2024-05-11 10:00:00 Outpatient [facility] [id number] [facility] 2024-04-27 10:00:00 2024-04-27 10:00:00 Outpatient [facility]I [facility] [id number] [facility] 2024-04-13 09:17:00 2024-04-13 09:17:00 Outpatient [facility] [id number] [facility] 2024-04-05 19:38:00 2024-04-11 12:40:00 Inpatient 3 GÓMEZ SHERMAN [facility] [id number] [facility] [place] 2024-03-30 19:25:00 2024-04-05 18:09:00 Inpatient WARD PORTILLO [facility] [id number] [facility] 2024-03-30 19:25:00 2024-04-05 18:09:00 Discharged Inpatient [facility] [id number] [facility] [id number] [facility] 2023-08-26 00:00:00 2023-08-26 00:00:00 Outpatient YVONNE [facility]OWN [facility] [id number] [facility] 2022-11-14 00:00:00 2022-11-14 00:00:00 [place] [id number] [facility] [facility] 2022-11-14 00:00:00 2022-11-14 00:00:00 Outpatient [place] [id number] [employer] [facility] 2022-11-14 00:00:00 2022-11-14 00:00:00 Grady Salgado, DO: [address], [address], [place] [address] , Ph. [phone] MMG [facility] surgery [id number] [employer] 2022-11-03 00:00:00 2022-11-03 00:00:00 Outpatient Damian_J MMG MMG [id number] [facility] 2022-10-22 08:20:00 2022-10-22 08:20:00 Outpatient Grady Aggarwal [facility] [id number] [facility] 2022-10-13 00:00:00 2022-10-13 00:00:00 Outpatient Young_J MMG MMG [id number] [facility] 2022-10-06 00:00:00 2022-10-06 00:00:00 Grady Salgado, DO: [address], [address], [place] [address] , Ph. [phone] [facility] [id number] [facility] 2022-10-01 00:00:00 2022-10-01 00:00:00 Outpatient Young_J MMG MMG [id number] [facility] 2022-10-01 00:00:00 2022-10-01 00:00:00 Outpatient Young_J MMG MMG [id number] [facility] 2022-10-01 00:00:00 2022-10-01 00:00:00 Outpatient Young_J MMG MMG [id number] [facility] 2022-10-01 00:00:00 2022-10-01 00:00:00 Outpatient Young_J MMG MMG [id number] [facility] 2022-09-25 00:00:00 2022-09-25 00:00:00 Outpatient Young_J MMG MMG [id number] [facility] 2022-09-12 00:00:00 2022-09-12 00:00:00 Outpatient IHDE_G MMG MMG [id number] [facility] 2022-09-12 00:00:00 2022-09-12 00:00:00 Outpatient IHDE_G MMG MMG [id number] [facility] 2022-09-12 00:00:00 2022-09-12 00:00:00 Christian Clayton MD: [address] [place] [address], [address], [place] [address] , Ph. [phone] [facility] surgery [id number] [facility] 2022-09-10 00:00:00 2022-09-10 00:00:00 Outpatient IHDE_G MMG MMG [id number] [facility] 2022-07-29 00:00:00 2022-07-29 00:00:00 Outpatient YVONNE [facility]OWN [facility] [id number] [facility] 2022-07-29 00:00:00 2022-07-29 00:00:00 Outpatient FERGUSON_JO HN [facility] [id number] [facility] 2022-03-31 00:00:00 2022-03-31 00:00:00 Outpatient FERGUSON_JO HN [facility] [id number] [facility] 2022-03-13 00:00:00 2022-03-13 00:00:00 Outpatient FERGUSON_JO HN [facility] [id number] [facility] 2022-03-12 00:00:00 2022-03-12 00:00:00 Outpatient FERGUSON_JO HN [facility] [id number] [facility] 2022-02-18 00:00:00 2022-02-18 00:00:00 Outpatient FERGUSON_JO HN [facility] [id number] [facility] 2022-01-22 12:02:00 2022-01-22 12:02:00 Outpatient FERGUSON_JO HN [facility] [id number] [facility] 2021-07-09 02:48:00 2021-07-09 02:48:00 Outpatient FERGUSON_JO HN [facility] [id number] [facility] 2021-06-04 09:59:00 2021-06-04 09:59:00 Outpatient FERGUSON_JO HN [facility] [id number] [facility] 2021-05-28 09:05:00 2021-05-28 09:05:00 Outpatient FERGUSON_JO HN [facility] [id number] [facility] 2021-04-18 08:59:00 2021-04-18 08:59:00 Outpatient FERGUSON_JO HN [facility] [id number] [facility] 2021-03-20 07:26:00 2021-03-20 07:26:00 Outpatient FERGUSON_JO HN [facility] [id number] [facility] 2021-03-13 02:40:00 2021-03-13 02:40:00 Outpatient FERGUSON_JO HN [facility] [id number] [facility] 2021-02-13 08:57:00 2021-02-13 08:57:00 Outpatient FERGUSON_JO HN [facility] [id number] [facility] 2020-09-11 09:01:00 2020-09-11 09:01:00 Outpatient FERGUSON_JO HN [facility] [id number] [facility] 2020-07-31 02:32:00 2020-07-31 02:32:00 Outpatient FERGUSON_JO HN [facility] [id number] [facility] 2020-07-30 03:35:00 2020-07-30 03:35:00 Outpatient FERGUSON_JO HN [facility] [id number] [facility] 2020 11:13:00 2020 11:13:00 Outpatient FERGUSON_JO HN [facility] [id number] [facility] 2020-06-13 05:46:00 2020-06-13 05:46:00 Outpatient FERGUSON_JO HN [facility] [id number] [facility] 2020-06-04 02:55:00 2020-06-04 02:55:00 Outpatient FERGUSON_JO HN [facility] [id number] [facility] 2020-02-28 11:47:00 2020-02-28 11:47:00 Outpatient FERGUSON_JO HN [facility] [id number] [facility] 2020-02-21 09:04:00 2020-02-21 09:04:00 Outpatient FERGUSON_JO HN [facility] [id number] [facility] 2019-09-06 02:57:00 2019-09-06 02:57:00 Outpatient FERGUSON_JO HN [facility] [id number] [facility] 2019-08-25 09:28:00 2019-08-25 09:28:00 Outpatient FERGUSON_JO HN [facility] [id number] [facility] Results Test Description Test Time Test Comments Results Result Co mments Source [facility] CtrSerum or plasma urea nitrogen measurement (mass/volume)2024-04-05 06:04:00* Test Item Value Reference Range Interpretation Comme [facility] Blood Urea Nitrogen (test co de = 3094-0) 8 [facility] CtrOsmolality [id number] 06:04:00* Test Item Value Reference Range Interpretation Comme [facility] Serum Osmolality (test code = XKW1133) 280 [facility] CtrChloride [id number] 06:04:00* Test Item Value Reference Range Interpretation Comme nts Chloride Level (test code = IWO0338) 104 [facility] CtrEstimated glomerular filtration rate (GFR) [id number] 06:04:00* Test Item Value Reference Range Interpretation Comme [facility] Glomerular Filtration Rate C alc (test code = 249555293) > 60.00 [facility] CtrBUN/creatinine [id number] 06:04:00* Test Item Value Reference Range Interpretation Comme nts BUN/Creatinine Ratio (test c ode = 85374075) 11.8 [facility] [id number] 06:04:00* Test Item Value Reference Range Interpretation Comme nts Carbon Dioxide Level (test c ode = 51853626) 28 [facility] CtrAnion gap [id number] 06:04:00* Test Item Value Reference Range Interpretation Comme nts Anion Gap (test code = 60803915) 12.9 [facility] CtrCalcium [id number] 06:04:00* Test Item Value Reference Range Interpretation Comme nts Calcium Level (test code = 49837517) 9.2 [facility] CtrAbsolute eosinophil [id number] 05:44:00* Test Item Value Reference Range Interpretation Comme [facility] Eosinophils # (Auto) (test c ode = WMO2957) 0.21 [facility] CtrRBC [id number] 05:44:00* Test Item Value Reference Range Interpretation Comme [facility] Red Blood Count (test code = 88199964) 4.22 [facility] [id number] 05:44:00* Test Item Value Reference Range Interpretation Comme [facility] Hematocrit (test code = 48409069) 38.2 [facility] CtrMCV (mean corpuscular volume) determination 2024-04-05 05:44:00* Test Item Value Reference Range Interpretation Comme [facility] Mean Corpuscular Volume (esther t code = 38332-9) 90.5 [facility] CtrMean corpuscular hemoglobin (MCH) determination 2024-04-05 05:44:00* Test Item Value Reference Range Interpretation Comme [facility] Mean Corpuscular Hemoglobin (test code = 31945878) 30.1 [facility] concentration (MCHC) [id number] 05:44:00* Test Item Value Reference Range Interpretation Comme [facility] Mean Corpuscular Hemoglobin Concent (test code = 36776269) 33.2 [facility] CtrRBC distribution width coefficient of variation 2024-04-05 05:44:00* Test Item Value Reference Range Interpretation Comme [facility] Red Cell Distribution Width (test code = 03069463) 12.4 [facility] CtrPlatelet [id number] 05:44:00* Test Item Value Reference Range Interpretation Comme [facility] Platelet Count (test code = 53341967) 169 [facility] CtrMean platelet [id number] 05:44:00* Test Item Value Reference Range Interpretation Comme nts Mean Platelet Volume (test c ode = 41447087) 9.5 [facility] CtrNeutrophils seg % [id number] 05:44:00* Test Item Value Reference Range Interpretation Comme nts Neutrophils (%) (Auto) (test code = 16415-1) 58.5 [facility] CtrAbsolute immature granulocyte [id number] 05:44:00* Test Item Value Reference Range Interpretation Comme nts Absolute Immature Granulocyt e (auto (test code = 53907-0) 0.01 [facility] CtrBlood band neutrophils count (number/volume) 2024-04-05 05:44:00* Test Item Value Reference Range Interpretation Comme nts Neutrophils # (Auto) (test c ode = 17734-7) 2.54 [facility] [id number] 05:44:00* Test Item Value Reference Range Interpretation Comme nts Lymphocytes # (Auto) (test c ode = 84971-3) 0.85 [facility] basophil [id number] 05:44:00* Test Item Value Reference Range Interpretation Comme nts Basophils # (Auto) (test cod e = 47533159) 0.04 [facility] NRBC [id number] 05:44:00* Test Item Value Reference Range Interpretation Comme nts Nucleated Red Blood Cells # (test code = 385553770) 0 [facility] CtrSerum or plasma vancomycin level (mass/volume) 2024-04-04 06:01:00* Test Item Value Reference Range Interpretation Comme nts Random Vancomycin Level (esther t code = 90451-8) 19.0 [facility] CtrMonitoring of blood [id number] 07:22:00* Test Item Value Reference Range Interpretation Comme nts POC Capillary Blood Glucose (Chem) (test code = 832803293) 103 [facility] [id number] 21:43:00* Test Item Value Reference Range Interpretation Comme nts Phosphorus Level (test code = ETZ1763) 3.1 [facility] [id number] 21:43:00* Test Item Value Reference Range Interpretation Comme nts Albumin (test code = FHP1720) 4.6 [facility] CtrBilirubin [id number] 17:45:00* Test Item Value Reference Range Interpretation Comme nts Total Bilirubin (test code = PGL8157) 0.6 [facility] CtrGlobulin [id number] 17:45:00* Test Item Value Reference Range Interpretation Comme nts Globulin (test code = 752992524) 2.6 [facility] [id number] 17:45:00* Test Item Value Reference Range Interpretation Comme nts Aspartate Amino Transf (AST/ SGOT) (test code = ALP1909) 29 [facility] CtrALT (SGPT) ser/[id number] 17:45:00* Test Item Value Reference Range Interpretation Comme nts Alanine Aminotransferase (AL T/SGPT) (test code = 1742-6) 18 [facility] CtrALP ser/[id number] 17:45:00* Test Item Value Reference Range Interpretation Comme nts Total Alkaline Phosphatase ( test code = 6768-6) 59 [facility] CtrProthrombin [id number] 17:42:00* Test Item Value Reference Range Interpretation Comme nts Prothrombin Time (test code = 059794537) 10.2 [facility] CtrWhole blood INR [id number] 17:42:00* Test Item Value Reference Range Interpretation Comme nts Prothromb Time International Ratio (test code = 46910-6) < 0.94 [facility] Ctr Notes <thead> Date/Time Note Provider Source [facility] [id number] 23:54:25 [facility]2024-09-17 23:54:25 Future Tests Future scheduled test information is unavailable Pending Tests Pending diagnostic test information is unavailable Future Visits Future appointment information is unavailable Referrals to Other Providers Referral information is unavailable Future Procedures <thead> Procedure Name Ordered Date Scheduled Date Wound Care March 30, 2024 4:17pm Mar Insert Peripheral IV Access March 30, 2024 4:26pm March 30, 2024 PODIATRY CONSULT March 30, 2024 5:00pm Sep tember 2023 Insert Peripheral IV Access March 30, 2024 5:00pm March 30, 2024 Electrocardiogram, Complete March 30, 2024 5:00pm March 30, 2024 4:52pm P.T. Eval and Treat March 30, 2024 7:33pm March 30, 2024 7:25pm O. T. Eval and Treat March 30, 2024 7:33pm March 30, 2024 7:25pm INITIAL RESPIRATORY TREATMENT March 30 7:33pm March 30, 2024 7:25pm Admit to Inpatient March 30, 2024 7:33pm [facility] 2023 7:25pm TRANSFER ROOM March 30, 2024 8:19pm [facility]2023 PHARMACIST CONSULT March 31, 2024 9:06am [facility] 2023 Consent form signed/placed on March 31, 2024 11:24pm March 31, 2024 11:20pm Case Management Consultation March 202023 11:38am April 01, 2024 P.T. Eval and Treat April 01, 2024 1:16pm April 01, 2024 1:15pm Case Management Consultation April 01 1:28pm April 01, 2024 1:27pm P.T. Eval and Treat April 01, 2024 4:55pm April 01, 2024 4:52pm PICC/Midline Consult/Insertion April 02, 2 024 5:46pm April 02, 2024 PICC KIT 5 FR April 03, 2024 8:43am [facility]2023 8:30am PICC/CVC SECUREMENT DEVICE April 03, 2024 8:43am April 03, 2024 8:30am PICC PLACEMENT W/US GUID MS April 03, 2024 8:43am April 03, 2024 8:30am Resuscitation Status April 04, 2024 7:27pm April 04, 2024 7:26pm DISCHARGE PATIENT April 05, 2024 3:48pm Se ptember 2023 Future Medications Future medication information is unavailable Patient Instructions <tbody> Ampicillin; Sulbactam Inject ion Laceration Care, Adult, Easy -to-Read [facility] [id number] 23:54:25 [facility] Ctr
[2024-12-07] MEDS ORDERED: FAMOTIDINE 20 MG/2 ML VIAL IV ONE (10:25)
[2024-12-07] MEDS ORDERED: MAGNES/ALUMIN/SIMET 30ML UCUP ONE (10:25)
[2024-12-07] MEDS ORDERED: DICYCLOMINE HCL 20 MG/2 ML AMP IM ONE (10:25)
[2024-12-07] MEDS ORDERED: LIDOCAINE VISCOUS 2% 10ML ORAL SOLN ONE (10:26)
[2024-12-07 10:41] LABS: Absolute Eosinophils 0.1 K/uL (0-0.5); Absolute Lymphocytes (CBC) 0.9 K/uL (0.7-4.9); Absolute Monocytes 0.6 K/uL (0.1-1.3); Absolute Neutrophil 2.1 K/uL (1.8-8.0); Eosinophils % 2.5 % (0-4.4); Hematocrit 42.7 % (39.6-49.0); Hemoglobin 14.8 g/dL (13.6-17.9); Lymphocytes % 24.3 % (15.3-44.8); MCH 29.4 pg (27.0-35.0); MCHC 34.7 g/dL (32.0-36.0); MCV 84.8 fL (80-100); MPV 7.6 fL (7.6-11.3); Monocytes % 16.8 % (3.3-12.3); Neutrophils % 55.4 % (41.7-73.7); Nucleated Red Blood Cells % 0.1 % (0-0); Platelets 181 thou/uL (152-406); RBC Red Blood Cell Count 5.03 M/uL (4.33-5.43); Red Cell Distribution Width 12.8 % (12.1-15.2)
[2024-12-07 10:57] LABS: Albumin/Globulin Ratio 1.3 (1.1-1.8); Anion Gap 4.6 mEq/L (5.0-15.0); Bilirubin Total 0.7 mg/dL (0.2-1.0); Globulin 3.2 g/dL (2.3-3.5); Potassium 3.6 mEq/L (3.5-5.1); Protein, Total 7.2 g/dL (6.4-8.2)
--- NOTE | 2024-12-07 11:36 | RAD REPORT ---
EXAMINATION: CT ABDOMEN AND PELVIS WITH CONTRAST CLINICAL INDICATION: Abdominal pain TECHNIQUE: CT abdomen and pelvis was performed, after the administration of 100 cc Isovue-300.. Sagit stormy and coronal reconstructions were obtained. One or more of the following dose reduction techniques were used: Automated exposure control, adjustment of the mA and kV according to patient si ze, and iterative reconstruction. Unless otherwise specified, incidental findings do not require dedicated imaging follow-up. [id number]. Oral contrast was not given which limits evaluation of bowel and appendix. COMPARISON: .None FINDINGS: 5.7 cm partially necrotic mass mid to upper right kidney. Renal vein appears patent. No hydronephrosi s. Left renal cyst. Liver, spleen, pancreas and adrenals unremarkable. No evidence of diverticulitis. No nodule within the visualized lung bases.: Mild compression L2 vertebral body probably chronic. Normal appendix IMPRESSION: 5.7 cm right renal mass likely neoplasm. No evidence of metastatic disease.
--- NOTE | 2024-12-07 12:22 | ER ---
Nurse's Notes [facility] Name: Dakota Mcmahan Age: 64 yrs Sex: Male : 1960 Arrival Date: 12/07/2024 Time: 09:50 Bed 18 Private MD: Diagnosis: Acute on chronic gastritis;Acute on chronic renal mass Presentation: 12/07 10:02 Coronavirus screen: Client denies travel out of the [place] in the last 14 days. At this ll1 time, the client does not indicate any symptoms associated with coronavirus-19. Ebola Screen: Patient denies travel to an Ebola-affected area in the 21 days before illness onset. Initial Sepsis Screen: Does the patient meet any 2 criteria? No. Patient's initial sepsis screen is negative. Does the patient have a suspected source of infection? No. Patient's initial sepsis screen is negative. Risk Assessment: Do you want to hurt yourself or someone else? Patient reports no desire to harm self or others. Onset of symptoms was June 19, 2024. 10:02 Method Of Arrival: Ambulatory ll1 10:02 Acuity: ADITI 3 ll1 10:07 Chief complaint: Patient states: Abdominal pain for over 6 months, states has gotten ll1 worse. [facility] patient. Historical: - Allergies: 10:01 No Known Allergies; ll1 - PMHx: 10:01 Hypertensive disorder; Hypercholesterolemia; ll1 - PSHx: 10:01 foot surgery; hernia repair; ll1 - Immunization history:: Adult Immunizations up to date. - Infectious Disease History:: Denies. - Social history:: Smoking status: Patient/guardian denies using tobacco, the patient reports quitting approximately 20 years ago. - Family history:: not pertinent. Screenin:15 [facility] Fall Risk Assessment (Adult) History of falling in the last 3 months, kc6 including since admission No falls in past 3 months (0 pts) Confusion or Disorientation No (0 pts) Intoxicated or Sedated No (0 pts) Impaired Gait No (0 pts) Mobility Assist Device Used No (0 pt) Altered Elimination No (0 pt) Score/Fall Risk Level 0 - 2 = Low Risk Oriented to surroundings, Maintained a safe environment. Abuse screen: Denies threats or abuse. Denies injuries from another. Nutritional screening: No deficits noted. Tuberculosis screening: No symptoms or risk factors identified. Assessment: 11:15 General: Appears in no apparent distress. comfortable, well groomed, well developed, kc6 Behavior is calm, cooperative, appropriate for age. Pain: Complains of pain in abdomen Pain does not radiate. Pain began 6mo ago Is chronic. Neuro: Level of Consciousness is awake, alert, obeys commands, Oriented to person, place, time, situation, Appropriate for age. Respiratory: Airway is patent Trachea midline Respiratory effort is even, unlabored, Respiratory pattern is regular, symmetrical. GI: Abdomen is flat, non-distended, Bowel sounds present X 4 quads. Abd is soft X 4 quads Abdomen is tender to palpation X 4 quads. Reports lower abdominal pain, upper abdominal pain, Patient currently denies diarrhea, nausea, vomiting. Derm: No signs and/or symptoms reported regarding the dermatologic system. Skin is intact, is healthy with good turgor, Skin is pink, warm \T\ dry. 12:40 Reassessment: Patient appears in no apparent distress at this time. No changes from kc6 previously documented assessment. Patient and/or family updated on plan of care and expected duration. Pain level reassessed. Patient is alert, oriented x 3, equal unlabored respirations, skin warm/dry/pink. Patient states feeling better. Patient states symptoms have improved. Vital Signs: 10:02 BP 126 / 87; Pulse 87; Resp 16; Temp 97.9; Pulse Ox 100% on R/A; Weight 70.76 kg; ll1 Height 6 ft. 5 in. ; Pain 7/10; 10:02 Body Mass Index 18.50 (70.76 kg, 195.58 cm) ll1 10:02 Pain Scale: Adult ll1 ED Course: 09:56 Patient arrived in ED. gl 09:59 Jose Alejandro Warren MD is Attending Physician. rt 10:03 Triage completed. ll1 10:03 Arm band placed on Patient placed in an exam room, on a stretcher. ll1 10:08 Tracy Navarro RN is Primary Nurse. kc6 10:32 CBC with Diff Sent. bc6 10:32 CMP Sent. bc6 10:32 Lipase Sent. bc6 10:32 Initial lab(s) drawn, by pa, sent to lab. Inserted saline lock: 20 gauge in right bc6 antecubital area, using aseptic technique. Blood collected. Flushed with 10 mL NS. 11:15 CT Abd/Pelvis - IV Contrast Only In Process Unspecified. EDMS 11:15 Patient has correct armband on for positive identification. Bed in low position. Call kc6 light in reach. Side rails up X 1. Pulse ox on. NIBP on. Door closed. Noise minimized. Lights dimmed. Warm blanket given. Pillow given. Verbal reassurance given. 11:15 Patient maintains SpO2 saturation greater than 95% on room air. kc6 12:21 Malachi Coffman MD is Referral Physician. rt 12:41 No provider procedures requiring assistance completed. IV discontinued, intact, kc6 bleeding controlled, No redness/swelling at site. Pressure dressing applied. Administered Medications: 10:34 Drug: Dicyclomine IM 20 mg IM once Route: IM; Site: left deltoid; kc6 11:14 Follow up: Response: No adverse reaction kc6 10:34 Drug: Famotidine IVP 20 mg IVP once; dilute with 10 mL 0.9% NaCl; give over 2 minutes kc6 Route: IVP; Site: right antecubital; 11:14 Follow up: Response: No adverse reaction kc6 10:34 Drug: GI Cocktail without - (Maalox PO 30 ml, Lidocaine Mucous Membrane 2 % 15 kc6 ml) PO once Route: PO; 11:14 Follow up: Response: No adverse reaction kc6 Medication: 12:41 VIS not applicable for this client. kc6 Outcome: 12:22 Discharge ordered by MD. rt 12:41 Discharged to home ambulatory, kc6 12:41 Condition: improved 12:41 Discharge instructions given to patient, Instructed on discharge instructions, follow up and referral plans. medication usage, Demonstrated understanding of instructions, follow-up care, medications, Prescriptions given X 2, 12:41 Patient left the ED. kc6 Signatures: Dispatcher [employer] EDMS Annmarie Mercado RN RN ll1 Tracy Navarro RN RN kc6 Jose Alejandro Warren MD MD rt Lucía Sarabia 6 Angela Telles, Reg Reg gl Corrections: (The following items were deleted from the chart) 10:02 10:01 Social history: Smoking status: Patient denies any tobacco usage or history of. ll1 ll1
--- NOTE | 2024-12-07 12:22 | EDPHYS ---
Physician Documentation [facility] Name: Dakota Mcmahan Age: 64 yrs Sex: Male : 1960 Arrival Date: 12/07/2024 Time: 09:50 Bed 18 Private MD: ED Physician Jose Alejandro Warren HPI: 12/07 10:21 This 64 yrs old Male presents to ER via Ambulatory with complaints of Abdominal Pain. rt 10:21 Patient presents to the ED with 5 months of an upper abdominal pain. It is worsened rt over the past 2 weeks. Patient had a recent endoscopy that showed hemorrhagic gastritis and was placed on pantoprazole. States that the pain continues to worsen. Denies nausea, vomiting, black, bloody stools. States the pain gets worse after night, does improve throughout the day. Denies other acute complaints at this time, symptoms are moderate in severity, no other aggravating or alleviating factors.. Historical: - Allergies: 10:01 No Known Allergies; ll1 - PMHx: 10:01 Hypertensive disorder; Hypercholesterolemia; ll1 - PSHx: 10:01 foot surgery; hernia repair; ll1 - Immunization history:: Adult Immunizations up to date. - Infectious Disease History:: Denies. - Social history:: Smoking status: Patient/guardian denies using tobacco, the patient reports quitting approximately 20 years ago. - Family history:: not pertinent. ROS: 10:21 Constitutional: Negative for fever, chills, and weight loss, Cardiovascular: Negative rt for chest pain, palpitations, and edema, Respiratory: Negative for shortness of breath, cough, wheezing, and pleuritic chest pain, MS/Extremity: Negative for injury and deformity, Skin: Negative for injury, rash, and discoloration, Neuro: Negative for headache, weakness, numbness, tingling, and seizure, 10:21 Abdomen/GI: Positive for abdominal pain, Negative for nausea and vomiting, Exam: 10:21 Constitutional: This is a well developed, well nourished patient who is awake, alert, rt and in no acute distress. Head/Face: Normocephalic, atraumatic. Chest/axilla: Normal chest wall appearance and motion. Nontender with no deformity. No lesions are appreciated. Cardiovascular: Regular rate and rhythm with a normal S1 and S2. No gallops, murmurs, or rubs. Normal PMI, no JVD. No pulse deficits. Respiratory: Lungs have equal breath sounds bilaterally, clear to auscultation and percussion. No rales, rhonchi or wheezes noted. No increased work of breathing, no retractions or nasal flaring. Skin: Warm, dry with normal turgor. Normal color with no rashes, no lesions, and no evidence of cellulitis. MS/ Extremity: Pulses equal, no cyanosis. Neurovascular intact. Full, normal range of motion. Neuro: Awake and alert, GCS 15, oriented to person, place, time, and situation. Cranial nerves II-XII grossly intact. Motor strength 5/5 in all extremities. Sensory grossly intact. Cerebellar exam normal. Normal gait. 10:21 Abdomen/GI: Tenderness to the left upper quadrant without rebound, guarding, distention, no other focal areas of tenderness, Vital Signs: 10:02 BP 126 / 87; Pulse 87; Resp 16; Temp 97.9; Pulse Ox 100% on R/A; Weight 70.76 kg; ll1 Height 6 ft. 5 in. ; Pain 7/10; 10:02 Body Mass Index 18.50 (70.76 kg, 195.58 cm) ll1 10:02 Pain Scale: Adult ll1 MDM: 10:07 Medical Screening Exam initiated rt 14:00 Differential Diagnosis Gastritis, pancreatitis, renal mass. Data reviewed: vital signs, rt nurses notes, lab test result(s), radiologic studies. I considered the following discharge prescriptions or medication management in the emergency department Medications were administered in the Emergency Department. See MAR. Independent interpretation of the following test(s) in the Emergency Department CT Scan: My interpretation is Renal mass seen on interpretation of CT scan images. Care significantly affected by the following chronic conditions: Gastritis. Counseling: I had a detailed discussion with the patient and/or guardian regarding the historical points, exam findings, and any diagnostic results supporting the discharge/admit diagnosis, lab results, radiology results, the need for outpatient follow up, Inform patient of newly found renal mass, instructed to follow-up with PCP, urology for further evaluation.. Response to treatment: the patient's symptoms have markedly improved after treatment, Pain resolved after GI cocktail. 12/07 10:15 Order name: CBC with Diff; Complete Time: 11:22 rt 12/07 10:15 Order name: CMP; Complete Time: 11:22 rt 12/07 10:15 Order name: Lipase; Complete Time: 11:22 rt 12/07 10:15 Order name: CT Abd/Pelvis - IV Contrast Only; Complete Time: 11:46 rt 12/07 10:15 Order name: IV Saline Lock; Complete Time: 10:32 rt 12/07 10:15 Order name: Labs collected and sent; Complete Time: 10:32 rt Administered Medications: 10:34 Drug: Dicyclomine IM 20 mg IM once Route: IM; Site: left deltoid; kc6 11:14 Follow up: Response: No adverse reaction kc6 10:34 Drug: Famotidine IVP 20 mg IVP once; dilute with 10 mL 0.9% NaCl; give over 2 minutes kc6 Route: IVP; Site: right antecubital; 11:14 Follow up: Response: No adverse reaction kc6 10:34 Drug: GI Cocktail without - (Maalox PO 30 ml, Lidocaine Mucous Membrane 2 % 15 kc6 ml) PO once Route: PO; 11:14 Follow up: Response: No adverse reaction kc6 Disposition Summary: 12/07/24 12:22 Discharge Ordered Notes: Location: Home rt Problem: an ongoing problem rt Symptoms: have improved rt Condition: Stable rt Diagnosis - Acute on chronic gastritis rt - Acute on chronic renal mass rt Followup: rt - With: Private Physician - When: 2 - 3 days - Reason: Followup: rt - With: Malachi Coffman MD - When: 5 - 6 days - Reason: Discharge Instructions: - Discharge Summary Sheet rt - Gastritis, Adult rt - Renal Mass rt Forms: - Medication Reconciliation Form rt - Antibiotic Education rt - Prescription Opioid Use rt - Patient Portal Instructions rt - Leadership Thank You Letter rt Prescriptions: - Carafate 100 mg/mL Oral suspension - take 10 milliliter ORAL route every 6 hours as needed; 200 milliliter; Refills: rt 0, Product Selection Permitted - dicyclomine 10 mg Oral capsule - take 1 capsule ORAL route 4 times per day as needed; 15 capsule; Refills: 0, rt Product Selection Permitted Signatures: Dispatcher [employer] Annmarie Hopper RN RN ll1 Tracy Navarro RN RN kc6 Jose Alejandro Warren MD MD rt Corrections: (The following items were deleted from the chart) 10:02 10:01 Social history: Smoking status: Patient denies any tobacco usage or history of. ll1 ll1
[2024-12-07 12:56] VITALS: BP 126/87; TEMP 97.9; O2SAT 100
== END 2024-12-07 12:41 | disposition home or self-care (01) ==
LOC: ER 09:50
DX: K29.50 Unspecified chronic gastritis without bleeding (principal); K29.00 Acute gastritis without bleeding; N28.89 Other specified disorders of kidney and ureter
CPT/HCPCS: 85025; 36415; 83690; 80053; 74177; Q9967; J0500